=== PATIENT | female | born 1985 | race Caucasian/White ===

== ENCOUNTER 2016-12-04 12:52 | Outpatient (CLI) | payer BC ==
[~2016-12-04] VITALS: Ht 160 cm; Wt 57.3 kg
[2016-12-04 13:00] VITALS: Ht 160 cm; Wt 57.3 kg
[2016-12-04 13:04] VITALS: BP 107/56; PULSE 81; RESP 18
[2016-12-04] MEDS ORDERED: PREN-93 PO (13:07)
--- NOTE | 2016-12-04 14:47 | RADRPT ---
PROCEDURE: US OB. CLINICAL INDICATION: Size and dates TECHNIQUE: Multiple sonographic images of the pelvis and gravid uterus were obtained. The images were reviewed on a PACS workstation. COMPARISON: No prior studies are available for comparison. FINDINGS: There is a single viable intrauterine gestation. Cardiac activity is present with 148 beats per min manas. There is a vertex presentation. The placenta is anterior. There is no evidence for an abruption or placenta previa. Measurements were made in order to determine age. The results are as follows: BPD =8.3 cm HC =30.2 cm AC =29.9 cm FL =5.1 cm Estimated gestational age of approximately 32 weeks and 0 days based on ultrasound measurements. Clinical age: 35 weeks and 6 days. The estimated date of delivery is 01/29/17, based on ultrasound measurements. The EFW = 1854 g, <3%, based on LMP age. RPTAT: AA IMPRESSION: Single viable intrauterine gestation of approximately 32 weeks and 0 days based on ultrasound measu rements. Smaller than clinical age by almost 4 weeks. .Sukhjinder Birmingham MD, MD Date Time Electronically viewed and signed by .Sukhjinder Birmingham MD, on 12/04/2016 14:47 .S/
--- NOTE | 2016-12-04 16:45 | TRIAGE ---
OB Triage Datetime Report Generated by CPN: 12/04/2016 16:45 Datetime: 12/04/2016 15:46 Comments: D/c instruction given to pt. Pt was informed to wait for laborist. Pt verbalized underst aning. Endorse care to Eliana LIMA. This RN to L_D Datetime: 12/04/2016 15:45 Comments: Dr. Loving was informed of u/s results EFW 1854g, gestational age by u/s 332 week. N ew order to sent pt home. Datetime: 12/04/2016 15:36 Labor Evaluation Frequency: 2-10 Monitor Mode: External Duration (sec)2399: 40-60 Quality: Mild Pattern: Normal: <= 5 Contractions in 10 Minutes Resting Tone [place]: Relaxed Heart Rate FHR Baseline Rate: 140 Monitor Mode: External US FHR Baseline Changes: No Baseline Change Variability: Moderate 6-25 bpm Accelerations: 15X15 Decelerations: None Category: Category I Pain Assessment Pain Scale: 4 Pain Presence: Intermittent Pain Type: Cramping Pain Location: Abdomen Pain Goal: 4 Pain Relief Measures: Comfort Measures Datetime: 12/04/2016 14:56 Labor Evaluation Frequency: X3 Monitor Mode: External Duration (sec)2399: 50-70 Quality: Mild Pattern: Normal: <= 5 Contractions in 10 Minutes Resting Tone [place]: Relaxed Heart Rate FHR Baseline Rate: 140 Monitor Mode: External US FHR Baseline Changes: No Baseline Change Variability: Moderate 6-25 bpm Accelerations: 15X15 Decelerations: None Category: Category I Pain Assessment Pain Scale: 0 Pain Presence: None/Denies Pain Type: N/A Pain Goal: 3 Datetime: 12/04/2016 14:16 Comments: U/S IN PROGRESS Datetime: 12/04/2016 14:00 Labor Evaluation Frequency: X2 Monitor Mode: External Duration (sec)2399: 50-70 Quality: Mild Pattern: Normal: <= 5 Contractions in 10 Minutes Resting Tone [place]: Relaxed Heart Rate FHR Baseline Rate: 145 Monitor Mode: External US FHR Baseline Changes: No Baseline Change Variability: Moderate 6-25 bpm Accelerations: 15X15 Decelerations: None Category: Category I Datetime: 12/04/2016 13:32 Labor Evaluation Frequency: X3 Monitor Mode: External Duration (sec)2399: 40-80 Quality: Mild Pattern: Normal: <= 5 Contractions in 10 Minutes Resting Tone [place]: Relaxed Heart Rate FHR Baseline Rate: 130 Monitor Mode: External US FHR Baseline Changes: No Baseline Change Variability: Moderate 6-25 bpm Accelerations: 15X15 Decelerations: None Category: Category I Pain Assessment Pain Scale: 0 Pain Presence: None/Denies Pain Type: N/A Pain Goal: 3 Datetime: 12/04/2016 13:15 Assessment Type: Triage Maternal Assessment Level of Consciousness: Fully Conscious DTR's/Clonus: DTRs 2+; No Clonus Headache: Denies Blurred Vision: No Respiratory Effort: Unlabored; Regular Rhythm; Equal Expansion Breath Sounds, Left: Clear and Equal Breath Sounds, Right: Clear and Equal Nausea/Vomiting: Denies RUQ Epigastric Pain: Denies Lower Extremities Edema: None Upper Extremities Edema: None Facial Edema: None Fall Risk Assessment History of Falling: (0) No Secondary Diagnosis: (0) No Ambulatory Aid: (0) Bedrest/Nurse Assist IV Therapy: (0) No Gait: (0) Normal/Bedrest/Immobile Mental Status: (0) Oriented to Own Ability Fall Score: 0 Fall Risk Score Definition: No Risk: No action required Datetime: 12/04/2016 13:14 EGA: 35.6 Arrived By: Ambulatory Datetime: 12/04/2016 12:58 Time of Arrival: 12/04/2016 12:53 Arrived By: Ambulatory Arrived From: Office Chief Complaint: Pt was sent from clinic for u/s to Estimate date of delivery Movement: Present Contractions: Irregular Rupture of Membranes: Denies Vaginal Bleeding: None Vaginal Discharge: Denies Recent Sexual Intercouse: Denies Abdominal Trauma: Not Applicable Patient Complaints: None Initial Plan: nst, efw
--- NOTE | 2016-12-04 21:19 | CONS ---
Date/Time of Note Date/Time of Note DATE: 12/04/16 TIME: 21:14 Consultation Date/Type/Reason Admit Date/Time December 04, 2016 OB triage consult Reason for Consultation This patient is a 31 years old 3 para 2 both delivered by her estimated date of confinement is January 02, 2017 which makes her 35 weeks and 6 days today She came in complaining of uterine contractions On examination however her ear nose throat appears to be normal she was not in any distress her abdomen was soft heart tone was normal no CVA tenderness her general vital signs were stable Constitutional: improved, no complaints, No chills, No diaphoresis, No disoriented, No febrile, No other, No poor po, No requiring IVF, No requiring O2 Eyes: No discharge, No no complaints, No other, No pain, No redness, No visual change ENT: No bleeding, No congestion, No discharge, No dysphagia, No no complaints, No other, No pain, No sore throat Respiratory: No cough, No no complaints, No other, No pain, No pleuritic pain, No shortness of breath, No sputum, No wheezing Cardiovascular: No chest pain, No edema, No lightheadedness, No no complaints, No orthopenea, No other, No palpitations, No paroxysmal nocturnal dyspnea Gastrointestinal: No blood, No constipation, No decreased appetite, No diarrhea , No flatus, No nausea, No no complaints, No other, No pain, No passing stool, No vomiting Genitourinary: other (Due to lack of contraction pelvic exam was not performed) , No bleeding, No discharge, No dysuria, No flank pain, No hematuria, No no complaints Musculoskeletal: No back pain, No bone/joint pain, No neck pain, No no complaints, No other, No restricted range of motion, No swelling Skin: other, No bruising, No erythema, No laceration, No no complaints, No pruritis, No rash, No skin lesions Neurologic: other (Knee-jerk reflex was normal), No confusion, No dizziness, No focal-weakness, No headache, No no complaints , No seizure, No syncope Endocrine: No dry skin, No no complaints, No other, No polydypsia, No polyuria , No temp intolerance Additional Comments An ultrasound study was performed and the report was a single viable intrauterine gestation with a heartbeat of 148/min in vertex presentation placenta was anterior for age was estimated to be 32 weeks and 0 days as compared to 35 weeks and 6 days clinical estimated delivery was placed at January 29, 2017 Estimated weight was 1854 g 3% based on LMP With these finding patient was discharged home to be followed in Dr. Barrie maldonado office Social History Smoking Status: Never smoker Exam/Review of Systems Vital Signs Vitals Vital Signs Date Time Temp Pulse Resp B/P Pulse Ox O2 Delivery O2 Flow Rate FiO2 12/04/16 13:04 98.3 81 18 107/56 Room Air KENTRELL GUNDERSON MD Dec 04, 2016 21:19
== END 2016-12-04 16:02 | disposition home or self-care (01) ==
LOC: OBT 12:52 → L-D 12:52 → OBT 16:02
PROVIDERS: ATTEND Obstetrics & Gynecology
DX: O62.9 Abnormality of forces of labor, unspecified (principal); Z3A.35 35 weeks gestation of pregnancy
CPT/HCPCS: 76815; Z7500; G0463

== ENCOUNTER 2016-12-13 14:28 | Outpatient (CLI) | payer BC ==
[~2016-12-13] VITALS: Ht 162.6 cm; Wt 58.6 kg
[~2016-12-13 14:28] MED LIST: PREN-93 PO
[2016-12-13 14:38] VITALS: Ht 162.6 cm; Wt 58.6 kg
[2016-12-13 14:39] VITALS: BP 102/61; PULSE 70; RESP 16
[2016-12-13] MEDS ORDERED: HYDROCODONE/APAP (5/325) TAB PO SCH (18:30)
[2016-12-13 19:00] LABS: ADD SCAN DIFF NO; BASOPHILS % 0.4 % (0.0-2.0); EOSINOPHILS # 0.1 10^3/ul (0.0-0.5); EOSINOPHILS % 0.7 % (0.0-7.0); HEMATOCRIT 35.1 % (37.0-47.0); HEMOGLOBIN 11.9 g/dl (12.0-16.0); LYMPHOCYTES # 1.3 10^3/ul (0.8-2.9); LYMPHOCYTES % 18.3 % (15.0-51.0); MEAN CORPUSCULAR HEMOGLOBIN 30.9 pg (29.0-33.0); MEAN CORPUSCULAR HGB CONC 33.9 g/dl (32.0-37.0); MEAN CORPUSCULAR VOLUME 91.2 fl (82.0-101.0); MEAN PLATELET VOLUME 10.3 fl (7.4-10.4); MONOCYTE # 0.6 10^3/ul (0.3-0.9); MONOCYTES % 9.1 % (0.0-11.0); NEUTROPHIL # 4.7 10^3/ul (1.6-7.5); NEUTROPHILS % 67.6 % (39.0-77.0); PLATELET COUNT 223 10^3/UL (140-415); RED BLOOD COUNT 3.85 10^6/ul (4.20-5.40); RED CELL DISTRIBUTION WIDTH 12.3 % (11.5-14.5)
[2016-12-13 19:02] LABS: ADD UMIC NO; UR BILIRUBIN (Dip) NEGATIVE (NEGATIVE); UR BLOOD (Dip) NEGATIVE (NEGATIVE); UR CLARITY CLEAR (CLEAR); UR COLOR LT. YELLOW (YELLOW); UR GLUCOSE (Dip) NEGATIVE (NEGATIVE); UR KETONES (Dip) NEGATIVE (NEGATIVE); UR LEUKOCYTE ESTERASE (Dip) NEGATIVE (NEGATIVE); UR NITRITE (Dip) NEGATIVE (NEGATIVE); UR TOTAL PROTEIN (Dip) NEGATIVE (NEGATIVE); UR UROBILINOGEN (Dip) 0.2 E.U./dL (0.1-1.0)
[2016-12-13] MEDS ORDERED: TERBUTALINE 1 ML ONE (19:06)
[2016-12-13 19:07] LABS: INR 0.92; PARTIAL THROMBOPLASTIN TIME 26.3 Sec (25.0-35.0); PROTIME 12.4 Sec (12.2-14.2)
[2016-12-13 19:18] LABS: ALBUMIN 3.8 g/dl (3.3-4.9); ALBUMIN/GLOBULIN RATIO 1.46; BILIRUBIN,INDIRECT 0.1 mg/dl (0-1.1); BILIRUBIN,TOTAL 0.1 mg/dl (0.2-1.3); CALCIUM 8.9 mg/dl (8.4-10.2); CREATININE 0.53 mg/dl (0.44-1.00); POTASSIUM 3.9 mmol/L (3.5-5.1); TOTAL PROTEIN 6.4 g/dl (6.1-8.1); URIC ACID 2.4 mg/dl (3.1-7.9)
[2016-12-13] MEDS ORDERED: TERBUTALINE 1 MG/ML INJ SC SCH (20:00)
--- NOTE | 2016-12-13 20:47 | PN ---
Triage Information Date/Time Weeks of Gestation 33 wks 2 days : 3 Para: 2 Diabetes: none Hypertention: none Additional information patient c/o headache and swelling; she took motrin at home. [place] in triage improved her headache from 6/10 to 4/10. Denies blurry vision or RUQ pain. No VB, no LOF, patient had some occasional ctx, which resolved after terbutaline. Good FM. Objective Vital Signs Date Time Temp Pulse Resp B/P Pulse Ox O2 Delivery O2 Flow Rate FiO2 12/13/16 14:39 98.0 70 16 102/61 Heart Rate: 140's Contractions: None Results/Medications Result Diagram: 12/13/16 1716 12/13/16 1716 Results 24 hrs Laboratory Tests Test 12/13/16 17:16 White Blood Count 7.0 Red Blood Count 3.85 L Hemoglobin 11.9 L Hematocrit 35.1 L Mean Corpuscular Volume 91.2 Mean Corpuscular Hemoglobin 30.9 Mean Corpuscular Hemoglobin Concent 33.9 Red Cell Distribution Width 12.3 Platelet Count 223 Mean Platelet Volume 10.3 Neutrophils % 67.6 Lymphocytes % 18.3 Monocytes % 9.1 Eosinophils % 0.7 Basophils % 0.4 Nucleated Red Blood Cells % 0.0 Neutrophils # 4.7 Lymphocytes # 1.3 Monocytes # 0.6 Eosinophils # 0.1 Basophils # 0.0 Nucleated Red Blood Cells # 0.0 Prothrombin Time 12.4 Prothrombin Time Ratio 1.0 INR International Normalized Ratio 0.92 Activated Partial Thromboplast Time 26.3 Urine Color LT. YELLOW Urine Clarity CLEAR Urine pH 6.0 Urine Specific [place] 1.010 Urine Ketones NEGATIVE Urine Nitrite NEGATIVE Urine Bilirubin NEGATIVE Urine Urobilinogen 0.2 E.U./dL Urine Leukocyte Esterase NEGATIVE Urine Hemoglobin NEGATIVE Urine Glucose NEGATIVE Urine Total Protein NEGATIVE Sodium Level 135 Potassium Level 3.9 Chloride Level 109 Carbon Dioxide Level 22 Anion Gap 8 Blood Urea Nitrogen 5 L Creatinine 0.53 Glucose Level 69 L Uric Acid 2.4 L Calcium Level 8.9 Total Bilirubin 0.1 L Direct Bilirubin 0.00 Indirect Bilirubin 0.1 Aspartate Amino Transf (AST/SGOT) 19 Alanine Aminotransferase (ALT/SGPT) 23 Alkaline Phosphatase 115 Total Protein 6.4 Albumin 3.8 Globulin 2.60 Albumin/Globulin Ratio 1.46 Medications Current Medications Acetaminophen/ Hydrocodone Bitart ([place] (5/325)) 1 tab ONCE PO ; Start at 18:30; Stop 12/13/16 at 22:22 Terbutaline Sulfate ([place]) 0.25 mg Q20M SC ; Start 12/13/16 at 20:00; Stop 12/13/16 at 20:21 Assessment/Plan 31 yo P2 @ 33.2 wks, w/o prior c/d x 2 - headache now resolving - nml BP, nml PIH labs, no si/sx pre-eclampsia - had some ctx, which resolved - reassuring status Will do sono to r/o previa/accreta, as patient states she had previa on 20 wk sono; if nml placenta, SVE prior to d/c home GUILLERMO GONZALEZ MD Dec 13, 2016 20:23
--- NOTE | 2016-12-13 23:03 | RADRPT ---
PROCEDURE: OB ultrasound for biophysical profile CLINICAL INDICATION: Dizziness. TECHNIQUE: Multiple sonographic images of the gravid uterus performed. The images were reviewed on a PACS workstation. COMPARISON: None FINDINGS: A single live intrauterine is identified with heart rate of 131 bpm. Fet us is in a cephalic presentation. Placenta is located anterior. Biophysical profile: breathing movement = 2/2 tone = 2/2 motion = 2/2 NORMA = 2/2 NORMA = 14.89 cm. IMPRESSION: 1. Single live intrauterine gestation. 2. Biophysical profile = 8/8. 3. NORMA = 14.89 cm. RPTAT: HMVK .Darrin Mccormack MD, MD Date Time Electronically viewed and signed by .Darrin Mccormack MD, MD on 12/13/2016 22:40 .K/
--- NOTE | 2016-12-14 08:01 | TRIAGE ---
OB Triage Datetime Report Generated by CPN: 12/14/2016 08:00 Datetime: 12/13/2016 23:24 Vaginal Exam Dilatation (cms): 0.0 Effacement (%): 0 Station: -3 Exam By: A OSIEL RN Vaginal Bleeding: None Cervix, Consistency: Firm Cervix, Position: Posterior Datetime: 12/13/2016 23:20 Pain Presence: None/Denies Datetime: 12/13/2016 23:00 Stage of : OB Triage Labor Evaluation Frequency: 0 Monitor Mode: External Heart Rate FHR Baseline Rate: 145 Monitor Mode: External US FHR Baseline Changes: No Baseline Change Variability: Moderate 6-25 bpm Accelerations: 15X15 Decelerations: None Category: Category I Datetime: 12/13/2016 21:12 Contraction Comments: PT DISCONNECT SELF FROM MONITOR Comments: PT DISCONNECT SELF FROM MONITOR Datetime: 12/13/2016 21:00 Stage of : OB Triage Labor Evaluation Frequency: IRREGULAR Monitor Mode: External Duration (sec)2399: 20-120 Quality: Mild Pattern: Normal: <= 5 Contractions in 10 Minutes Resting Tone [place]: Relaxed Heart Rate FHR Baseline Rate: 135 Monitor Mode: External US FHR Baseline Changes: No Baseline Change Variability: Moderate 6-25 bpm Accelerations: 15X15 Decelerations: Variable Category: Category I Datetime: 12/13/2016 20:00 Stage of : OB Triage Labor Evaluation Frequency: IRREGULAR Monitor Mode: External Duration (sec)2399: 30 Quality: Mild Pattern: Normal: <= 5 Contractions in 10 Minutes Resting Tone [place]: Relaxed Heart Rate FHR Baseline Rate: 135 Monitor Mode: External US FHR Baseline Changes: No Baseline Change Variability: Moderate 6-25 bpm Accelerations: 15X15 Decelerations: None Category: Category I Datetime: 12/13/2016 19:22 Assessment Type: Triage Maternal Assessment Level of Consciousness: Fully Conscious DTR's/Clonus: DTRs 2+; No Clonus Headache: Frontal Blurred Vision: No Respiratory Effort: Unlabored; Regular Rhythm; Equal Expansion Breath Sounds, Left: Clear and Equal Breath Sounds, Right: Clear and Equal Nausea/Vomiting: Denies RUQ Epigastric Pain: Denies Lower Extremities Edema: None Degree: None Upper Extremities Edema: None Degree: None Facial Edema: None Fall Risk Assessment History of Falling: (0) No Secondary Diagnosis: (0) No Ambulatory Aid: (0) Bedrest/Nurse Assist IV Therapy: (0) No Gait: (0) Normal/Bedrest/Immobile Mental Status: (0) Oriented to Own Ability Fall Score: 0 Fall Risk Score Definition: No Risk: No action required Datetime: 12/13/2016 18:48 Stage of : OB Triage Labor Evaluation Frequency: 3-4 Monitor Mode: External Duration (sec)2399: 40-50 Quality: Mild Pattern: Normal: <= 5 Contractions in 10 Minutes Resting Tone [place]: Relaxed Heart Rate FHR Baseline Rate: 125 Monitor Mode: External US FHR Baseline Changes: No Baseline Change Variability: Moderate 6-25 bpm Accelerations: 15X15 Decelerations: Early Category: Category II Membrane Status: Intact Datetime: 12/13/2016 18:39 Labor Evaluation Frequency: 3-5 Monitor Mode: External Duration (sec)2399: 50-60 Quality: Mild Pattern: Normal: <= 5 Contractions in 10 Minutes Resting Tone [place]: Relaxed Heart Rate FHR Baseline Rate: 125 Monitor Mode: External US FHR Baseline Changes: No Baseline Change Variability: Moderate 6-25 bpm Accelerations: 15X15 Decelerations: None Category: Category I Datetime: 12/13/2016 17:59 Labor Evaluation Frequency: 3-4 Monitor Mode: External Duration (sec)2399: 40-50 Quality: Mild Pattern: Normal: <= 5 Contractions in 10 Minutes Resting Tone [place]: Relaxed Heart Rate FHR Baseline Rate: 125 Monitor Mode: External US FHR Baseline Changes: No Baseline Change Variability: Moderate 6-25 bpm Accelerations: 15X15 Decelerations: None Category: Category I Datetime: 12/13/2016 16:54 Labor Evaluation Frequency: 0 Monitor Mode: External Duration (sec)2399: 0 Resting Tone [place]: Relaxed Heart Rate FHR Baseline Rate: 125 Monitor Mode: External US FHR Baseline Changes: No Baseline Change Variability: Moderate 6-25 bpm Accelerations: 15X15 Decelerations: None Category: Category I Datetime: 12/13/2016 16:08 Labor Evaluation Frequency: 0 Monitor Mode: External Duration (sec)2399: 0 Resting Tone [place]: Relaxed Heart Rate FHR Baseline Rate: 135 Monitor Mode: External US FHR Baseline Changes: No Baseline Change Variability: Moderate 6-25 bpm Accelerations: 15X15 Decelerations: None Category: Category I Datetime: 12/13/2016 15:43 Labor Evaluation Frequency: 0 Monitor Mode: External Duration (sec)2399: 0 Resting Tone [place]: Relaxed Heart Rate FHR Baseline Rate: 135 Monitor Mode: External US FHR Baseline Changes: No Baseline Change Variability: Moderate 6-25 bpm Accelerations: 15X15 Decelerations: Variable Category: Category II Membrane Status: Intact Datetime: 12/13/2016 15:02 Assessment Type: Triage Maternal Assessment Level of Consciousness: Fully Conscious DTR's/Clonus: DTRs 2+; No Clonus Headache: Frontal Blurred Vision: No Respiratory Effort: Unlabored; Regular Rhythm; Equal Expansion Breath Sounds, Left: Clear and Equal Breath Sounds, Right: Clear and Equal Nausea/Vomiting: Denies RUQ Epigastric Pain: Denies Lower Extremities Edema: None Degree: None Upper Extremities Edema: None Degree: None Facial Edema: None Fall Risk Assessment History of Falling: (0) No Secondary Diagnosis: (0) No Ambulatory Aid: (0) Bedrest/Nurse Assist IV Therapy: (0) No Gait: (0) Normal/Bedrest/Immobile Mental Status: (0) Oriented to Own Ability Fall Score: 0 Fall Risk Score Definition: No Risk: No action required Datetime: 12/13/2016 14:54 Stage of : OB Triage Time of Arrival: 12/13/2016 14:20 EGA: 33.2 Arrived By: Ambulance Arrived From: Home Chief Complaint: Pt. came to hospital c/o headche , swelling since yesterday morning 0600, pain le kiran 6/10, deny uc, deny vag. bleeding. deny srom Movement: Present Contractions: Denies/Absent Contractions: 0 Rupture of Membranes: Denies Vaginal Bleeding: None Vaginal Discharge: Denies Recent Sexual Intercouse: Denies Abdominal Trauma: Not Applicable Patient Complaints: Headache Time Provider Notified: 12/13/2016 15:30 Provider Notified: LENOREE Maternal Assessment Level of Consciousness: Fully Conscious DTR's/Clonus: DTRs 2+; No Clonus Headache: Temporal; Frontal Blurred Vision: Yes Respiratory Effort: Unlabored Breath Sounds, Left: Clear and Equal Breath Sounds, Right: Clear and Equal Nausea/Vomiting: Denies RUQ Epigastric Pain: Denies Facial Edema: None Labor Evaluation Frequency: 0 Monitor Mode: External Duration (sec)2399: 0 Resting Tone [place]: Relaxed Heart Rate FHR Baseline Rate: 120 Monitor Mode: External US FHR Baseline Changes: No Baseline Change Variability: Moderate 6-25 bpm Accelerations: 15X15 Decelerations: None Category: Category I Pain Assessment Pain Scale: 7 Pain Presence: Intermittent Pain Type: Ache Pain Location: Other Pain Goal: 0 Pain Relief Measures: Comfort Measures Membrane Status: Intact Datetime: 12/04/2016 13:15 Fall Score: 0 Fall Risk Score Definition: No Risk: No action required Datetime: 12/04/2016 13:14 EGA: 32.0 Datetime: 12/04/2016 12:58 Initial Plan: nst, efw (nst reactive)
== END 2016-12-13 23:30 | disposition home or self-care (01) ==
LOC: L-D 14:28 → OBT 14:28
PROVIDERS: ATTEND Obstetrics & Gynecology
DX: O26.893 Other specified pregnancy related conditions, third trimester (principal); R51 Headache; Z3A.32 32 weeks gestation of pregnancy
CPT/HCPCS: 76818; 80053; 81003; 84560; 85025; 85610; 85730; 86900; 86901; J3105; Z7500; G0463

== ENCOUNTER 2016-12-17 16:39 | Outpatient (CLI) | payer BC ==
[~2016-12-17] VITALS: Ht 162.6 cm; Wt 58.5 kg
[2016-12-17 16:55] VITALS: Ht 162.6 cm; Wt 58.5 kg
[2016-12-17] MEDS ORDERED: FER325 PO (16:55)
[2016-12-17] MEDS ORDERED: CALC600T11 PO (16:55)
[2016-12-17 16:56] VITALS: BP 104/58; PULSE 78; RESP 18
--- NOTE | 2016-12-17 17:44 | RADRPT ---
PROCEDURE: OB ultrasound for biophysical profile CLINICAL INDICATION: Biophysical profile. . TECHNIQUE: Multiple sonographic images of the pelvis were obtained. Transabdominal views are obta ined. COMPARISON: 12/13/2016 FINDINGS: Single intrauterine gestation. Presentation: Cephalic. Placenta: Anterior. No evidence of placental abruption. No evidence of placenta previa. breathing movement = 2/2 tone = 2/2 motion = 2/2 NORMA = 2/2 NORMA = 11.9 cm; previously 14.8 cm heart rate: 161 beats per minute IMPRESSION: Single intrauterine gestation. Biophysical profile 02/03 RPTAT: AADD .Dylon Corado MD, MD Date Time Electronically viewed and signed by .Dylon Corado MD, on 12/17/2016 17:44 .B/
--- NOTE | 2016-12-17 17:48 | RADRPT ---
AMENDMENT: 12/17/2016 8:00:50 PM ABBY PANIAGUA MD Addendum: Current gestational age dating: BPD: 34 weeks 1 day HC: 34 weeks 1 day AC: 34 weeks 0 days FL: 34 weeks 0 days Estimated gestational age: 34 weeks 1 day Estimated date of delivery: 01/27/2017 Gestational age: JIA of current study: 01/27/2017 JIA of first prior study dated (12/13/2016): 01/27/2017 JIA of second prior study dated (12/04/2016): 01/29/2017 Findings are consistent with appropriate interval growth over time. PROCEDURE: Obstetrical ultrasound. CLINICAL INDICATION: , evaluation. Pelvic pain. TECHNIQUE: Transabdominal sonographic images of the pelvis are obtained. COMPARISON: 12/13/2016, 12/04/2016 FINDINGS: Single intrauterine gestation. There is a cephalic presentation. Measurements were made in order to determine age. The results are as follows: BPD = 8.40 cm HC = 30.61 cm AC = 30.08 cm FL = 6.60 cm Heart rate = 152 beats per minute The placenta is anterior. There is no evidence for an abruption or placenta previa. Ovaries are not visualized. IMPRESSION: Single intrauterine gestation of approximately 34 weeks 1 days by ultrasound criteria. [place] estimated weight = 2336 g; 40 percentile for gestational age of 34 weeks 1 days. There are discrepancies of reported gestational age between the current and prior examination based on LMP. Recommend confirmation of gestational age. RPTAT: AADD .Abby Paniagua MD, Date Time Electronically viewed and signed by .Abby Paniagua MD, MD on 12/17/2016 20:01 .B/
--- NOTE | 2016-12-17 21:43 | TRIAGE ---
OB Triage Datetime Report Generated by CPN: 12/17/2016 21:42 Datetime: 12/17/2016 21:05 Stage of : OB Triage Labor Evaluation Frequency: 6/HR Monitor Mode: External Duration (sec)2399: 80-110 Quality: Mild Resting Tone [place]: Relaxed Heart Rate FHR Baseline Rate: 130 Monitor Mode: External US Variability: Moderate 6-25 bpm Accelerations: 15X15 Decelerations: None Category: Category I Pain Assessment Pain Scale: 0 Pain Presence: None/Denies Pain Goal: 3 Vaginal Exam Membrane Status: Intact Datetime: 12/17/2016 20:00 Stage of : OB Triage Labor Evaluation Frequency: IRREG Monitor Mode: External Duration (sec)2399: 90-120 Quality: Mild Resting Tone [place]: Relaxed Heart Rate FHR Baseline Rate: 135 Monitor Mode: External US Variability: Moderate 6-25 bpm Accelerations: 15X15 Decelerations: None Category: Category I Pain Assessment Pain Scale: 0 Pain Presence: None/Denies Pain Goal: 3 Vaginal Exam Membrane Status: Intact Datetime: 12/17/2016 19:00 Stage of : OB Triage Maternal Assessment Level of Consciousness: Fully Conscious Labor Evaluation Frequency: 2UC/HR Monitor Mode: External Duration (sec)2399: 110-120 Quality: Mild Resting Tone [place]: Relaxed Heart Rate FHR Baseline Rate: 135 Monitor Mode: External US Variability: Moderate 6-25 bpm Accelerations: 15X15 Decelerations: None Pain Assessment Pain Scale: 0 Pain Goal: 3 Vaginal Exam Membrane Status: Intact Vaginal Bleeding: None Datetime: 12/17/2016 18:00 Stage of : OB Triage Maternal Assessment Level of Consciousness: Fully Conscious Labor Evaluation Frequency: 1UC/HR Monitor Mode: External Duration (sec)2399: 80 Quality: Mild Resting Tone [place]: Relaxed Heart Rate FHR Baseline Rate: 145 Monitor Mode: External US Variability: Moderate 6-25 bpm Accelerations: 15X15 Decelerations: None Pain Assessment Pain Scale: 0 Pain Goal: 3 Vaginal Exam Membrane Status: Intact Vaginal Bleeding: None Datetime: 12/17/2016 16:53 Assessment Type: Triage Time of Arrival: 12/17/2016 16:35 EGA: 34.1 Arrived By: Ambulatory Arrived From: Dr. Ordoñez Chief Complaint: PT SENT IN FOR EVAL. OF IUGR Movement: Present Contractions: Denies/Absent Rupture of Membranes: Denies Vaginal Bleeding: None Vaginal Discharge: Denies Recent Sexual Intercouse: Denies Abdominal Trauma: Not Applicable Patient Complaints: None Time Provider Notified: 12/17/2016 17:10 Provider Notified: ESHAGHIAN Initial Plan: NST/BPP/EFW Maternal Assessment Level of Consciousness: Fully Conscious DTR's/Clonus: DTRs 2+; No Clonus Headache: Frontal Blurred Vision: No Respiratory Effort: Unlabored; Regular Rhythm; Equal Expansion Breath Sounds, Left: Clear and Equal Breath Sounds, Right: Clear and Equal Nausea/Vomiting: Denies RUQ Epigastric Pain: Denies Lower Extremities Edema: None Degree: None Upper Extremities Edema: None Degree: None Facial Edema: None Fall Risk Assessment History of Falling: (0) No Secondary Diagnosis: (0) No Ambulatory Aid: (0) Bedrest/Nurse Assist IV Therapy: (0) No Gait: (0) Normal/Bedrest/Immobile Mental Status: (0) Oriented to Own Ability Fall Score: 0 Fall Risk Score Definition: No Risk: No action required Datetime: 12/17/2016 16:49 Monitor Mode: External Monitor Mode: External US Datetime: 12/13/2016 19:22 Fall Score: 0 Fall Risk Score Definition: No Risk: No action required Datetime: 12/13/2016 15:02 Fall Score: 0 Fall Risk Score Definition: No Risk: No action required Datetime: 12/13/2016 14:54 EGA: 33.4 Datetime: 12/04/2016 13:15 Fall Score: 0 Fall Risk Score Definition: No Risk: No action required Datetime: 12/04/2016 13:14 EGA: 32.2
--- NOTE | 2016-12-17 22:40 | PN ---
Triage Information Date/Time Weeks of Gestation Patient is 3 para 2 at 34+1 weeks of gestation She has had minimal care and recently has moved here from [place] She reports positive movement She was sent from her clinic to be evaluated for possible IUGR : 3 Para: 2 Diabetes: none Hypertention: none Additional information Recently moved here from [place] with minimal care Objective Vital Signs Date Time Temp Pulse Resp B/P Pulse Ox O2 Delivery O2 Flow Rate FiO2 12/17/16 16:56 98.5 78 18 104/58 97 Room Air Heart Rate: 140's Heart Rate Comments Reactive Contractions: None Results/Medications Imaging Results PROCEDURE: OB ultrasound for biophysical profile CLINICAL INDICATION: Biophysical profile. . TECHNIQUE: Multiple sonographic images of the pelvis were obtained. Transabdominal views are obtained. COMPARISON: 12/13/2016 FINDINGS: Single intrauterine gestation. Presentation: Cephalic. Placenta: Anterior. No evidence of placental abruption. No evidence of placenta previa. breathing movement = 2/2 tone = 2/2 motion = 2/2 NORMA = 2/2 NORMA = 11.9 cm; previously 14.8 cm heart rate: 161 beats per minute IMPRESSION: Single intrauterine gestation. Biophysical profile 02/03 RPTAT: AADD .Dylon Corado MD, MD Date Time Electronically viewed and signed by .Dylon Corado MD, on 12/17/2016 17:44 .B/ CC: FRANCIA BROWN MD AMENDMENT: 12/17/2016 8:00:50 PM ABBY HOPKINS MD Addendum: Current gestational age dating: BPD: 34 weeks 1 day HC: 34 weeks 1 day AC: 34 weeks 0 days FL: 34 weeks 0 days Estimated gestational age: 34 weeks 1 day Estimated date of delivery: 01/27/2017 Gestational age: JIA of current study: 01/27/2017 JIA of first prior study dated (12/13/2016): 01/27/2017 JIA of second prior study dated (12/04/2016): 01/29/2017 Findings are consistent with appropriate interval growth over time. PROCEDURE: Obstetrical ultrasound. CLINICAL INDICATION: , evaluation. Pelvic pain. TECHNIQUE: Transabdominal sonographic images of the pelvis are obtained. COMPARISON: 12/13/2016, 12/04/2016 FINDINGS: Single intrauterine gestation. There is a cephalic presentation. Measurements were made in order to determine age. The results are as follows: BPD = 8.40 cm HC = 30.61 cm AC = 30.08 cm FL = 6.60 cm Heart rate = 152 beats per minute The placenta is anterior. There is no evidence for an abruption or placenta previa. Ovaries are not visualized. IMPRESSION: Single intrauterine gestation of approximately 34 weeks 1 days by ultrasound criteria. [place] estimated weight = 2336 g; 40 percentile for gestational age of 34 weeks 1 days. There are discrepancies of reported gestational age between the current and prior examination based on LMP. Recommend confirmation of gestational age. RPTAT: AADD .Abby Hopkins MD, MD Date Time Electronically viewed and signed by .Abby Hopkins MD, MD on 12/17/2016 20:01 .B/ CC: FRANCIA BROWN MD Assessment/Plan Patient is a 34 weeks of gestation with estimated date of delivery January 27, 2017 Estimated weight of 2336 g at 40th percentile Biophysical profile within normal limits Patient will be discharged home Patient instructed to follow-up with the clinic in 2-3 days MARIAH MCMAHAN MD Dec 17, 2016 22:40
== END 2016-12-17 21:30 | disposition home or self-care (01) ==
LOC: OBT 16:39 → L-D 16:40 → OBT 21:30
PROVIDERS: ATTEND Obstetrics & Gynecology
DX: O26.893 Other specified pregnancy related conditions, third trimester (principal); R10.2 Pelvic and perineal pain; Z3A.34 34 weeks gestation of pregnancy
CPT/HCPCS: 76815; 76818; G0463

== ENCOUNTER 2017-01-01 07:43 | Inpatient (IN) | payer BC ==
[~2017-01-01] VITALS: Ht 162.6 cm; Wt 58.8 kg
[2017-01-01] VITALS (7 sets, daily range): BP systolic 123–156; BP diastolic 70–85; PULSE 48–100; RESP 16–20; Ht 162.6 cm; Wt 58.8 kg
[~2017-01-01 07:43] MED LIST changes: +CALC600T11 PO; +FER325 PO
--- NOTE | 2017-01-01 08:42 | RADRPT ---
PROCEDURE: US OB. CLINICAL INDICATION: labor at 34 weeks gestational age. TECHNIQUE: Multiple sonographic images of the uterus were obtained. The images were revi ewed on a PACS workstation. COMPARISON: No prior studies are available for comparison. FINDINGS: There is a single live intrauterine gestation. heart rate is 1243 beats per minute. Measurements were made in order to determine age. The results are as follows: BPD = not visualized due to low position. HC = not visualized due to low position. AC = 31.11 cm. FL = 6.39 cm. Estimated weight is 2449 +/- 392 grams. LMP growth percentile is 12 %. Menstrual age by ultrasound dates is 34 weeks 0 days. The estimated date of delivery is 02/12/2017. Position is cephalic and placenta is anterior grade II. There is no evidence for an abruption or silvia centa previa. IMPRESSION: 1. Single live intrauterine gestation of 34 weeks 0 days menstrual age by ultrasound dates. 2. The estimated date of delivery is 02/12/2017. 3. head is not well seen and unable to be measured due to very low position. RPTAT: QQ .Samuel Lee MD, MD Date Time Electronically viewed and signed by .Samuel Lee MD, on 01/01/2017 08:42 .R/
--- NOTE | 2017-01-01 08:45 | RADRPT ---
PROCEDURE: OB ultrasound for biophysical profile CLINICAL INDICATION: Biophysical profile. . TECHNIQUE: Multiple sonographic images of the pelvis were obtained. Transabdominal views are obta ined. COMPARISON: 01/01/2017 FINDINGS: Single intrauterine gestation. Presentation: Cephalic. Placenta: Anterior. No evidence of placental abruption. No evidence of placenta previa. breathing movement = 2/2 tone = 2/2 motion = 2/2 NORMA = 2/2 NORMA = 12.2 cm; previously 11.9 cm heart rate: 146 beats per minute IMPRESSION: Single intrauterine gestation. Biophysical profile 02/03 RPTAT: AADD .Dylon Corado MD, MD Date Time Electronically viewed and signed by .Dylon Corado MD, on 01/01/2017 08:45 .B/
[2017-01-01] MEDS: LACTATED RINGER'S 1,000 ML IV SCH ×5 (08:52→23:42)
[2017-01-01 08:59] LABS: ADD SCAN DIFF NO
[2017-01-01 09:17] LABS: INR 0.81; PROTIME 11.2 Sec (12.2-14.2); PT RATIO 0.9
[2017-01-01 09:18] LABS: PARTIAL THROMBOPLASTIN TIME 23.6 Sec (25.0-35.0)
[2017-01-01] MEDS ORDERED: METHYLERGONOVINE 0.2 MG INJ IM PRN ×2 (09:30→14:00)
[2017-01-01] MEDS ORDERED: BETAMET NA PHOS/AC(6 MG/ML) 5ML INJ IM ONE (09:30)
[2017-01-01] MEDS ORDERED: CEFAZOLIN 2 GM/50 ML (PMX) 50 ML IV SCH (09:30)
[2017-01-01] MEDS ORDERED: OXYTOCIN 30 UNITS/LR 500 ML IV SCH (09:30)
[2017-01-01] MEDS ORDERED: MISOPROSTOL 200 MCG TAB PR PRN ×2 (09:30→14:00)
[2017-01-01] MEDS ORDERED: CARBOPROST 250 MCG INJ IM PRN ×2 (09:30→14:00)
[2017-01-01] MEDS ORDERED: OXYTOCIN 30 UNITS/LR 500 ML IV PRN ×2 (09:30→14:00)
[2017-01-01 09:45] LABS: HEMOGLOBIN 13.1 g/dl (12.0-16.0); RED BLOOD COUNT 4.19 10^6/ul (4.20-5.40); WHITE BLOOD COUNT 8.2 10^3/ul (4.8-10.8)
[2017-01-01 09:46] LABS: BASOPHILS % 0.5 % (0.0-2.0); EOSINOPHILS % 1.1 % (0.0-7.0); HEMATOCRIT 37.7 % (37.0-47.0); LYMPHOCYTES % 30.3 % (15.0-51.0); MEAN CORPUSCULAR HEMOGLOBIN 31.3 pg (29.0-33.0); MEAN CORPUSCULAR HGB CONC 34.7 g/dl (32.0-37.0); MEAN PLATELET VOLUME 10.9 fl (7.4-10.4); MONOCYTES % 9.4 % (0.0-11.0); NEUTROPHILS % 55.6 % (39.0-77.0); PLATELET COUNT 203 10^3/UL (140-440); RED CELL DISTRIBUTION WIDTH 12.6 % (11.5-14.5)
[2017-01-01 09:47] LABS: EOSINOPHILS # 0.1 10^3/ul (0.0-0.5); LYMPHOCYTES # 2.5 10^3/ul (0.8-2.9); MONOCYTE # 0.8 10^3/ul (0.3-0.9); NEUTROPHIL # 4.6 10^3/ul (1.6-7.5)
--- NOTE | 2017-01-01 09:47 | CONS ---
Date/Time of Note Date/Time of Note DATE: 01/01/17 TIME: 09:37 Consultation Date/Type/Reason Admit Date/Time Jan 01, 2017 at 09:32 OB triage consult Reason for Consultation This patient is a 31 years old 3 para 2 who had her previous deliveries by section. Her estimated date of confinement is January 27, 2017 which makes her 36 weeks and 2 days. She came in complaining of contractions since 6: 00 in the morning On examination she is a well-developed well-nourished lady near term. her general vital signs are normal, blood pressure 135/85 ,pulse rate 100, respiration 20, temperature 97, She does have contractions every 5-6 minutes. heart tone is normal with fairly good variability and occasional acceleration . On pelvic examination cervix is 1 finger 90% effaced -2 station with intact membranes. Laboratory Tests Test 01/01/17 08:25 Prothrombin Time 11.2Sec Prothrombin Time Ratio 0.9 INR International Normalized Ratio 0.81 Activated Partial Thromboplast Time 23.6Sec Current Medications Medications (Trade) Dose Ordered Sig/Nancy Route PRN Reason Start Time Stop Time Status Last Admin Dose Admin Lactated Ringer's 1,000 ml @ 125 mls/hr Q8H IV 01/01/17 08:30 01/01/17 09:05 125 MLS/HR Cefazolin Sodium/ Dextrose 50 ml @ 100 mls/hr ONCE IV 01/01/17 09:30 Oxytocin/Lactated Ringer's 500 ml @ 125 mls/hr ONCE IV 01/01/17 09:30 Oxytocin/Lactated Ringer's 500 ml @ 0 mls/hr ONCE PRN IV For Hemorrhage Management 01/01/17 09:30 Methylergonovine Maleate (Methergine) 0.2 mg ONCE PRN IM VAGINAL BLEEDING 01/01/17 09:30 Carboprost Tromethamine (Hemabate) 250 mcg ONCE PRN IM VAGINAL BLEEDING 01/01/17 09:30 Misoprostol (Cytotec) 1,000 mcg ONCE PRN NC VAGINAL BLEEDING 01/01/17 09:30 Betamethasone Acet/Betameth SodPhos (Celestone Soluspan) 12 mg ONCE ONCE IM 01/01/17 09:30 01/01/17 09:34 DC Constitutional: No chills, No diaphoresis, No disoriented, No febrile, No improved, No no complaints, No other, No poor po, No requiring IVF, No requiring O2 Eyes: No discharge, No no complaints, No other, No pain, No redness, No visual change ENT: No bleeding, No congestion, No discharge, No dysphagia, No no complaints, No other, No pain, No sore throat Respiratory: No cough, No no complaints, No other, No pain, No pleuritic pain, No shortness of breath, No sputum, No wheezing Cardiovascular: No chest pain, No edema, No lightheadedness, No no complaints, No orthopenea, No other, No palpitations, No paroxysmal nocturnal dyspnea Gastrointestinal: No blood, No constipation, No decreased appetite, No diarrhea , No flatus, No nausea, No no complaints, No other, No pain, No passing stool, No vomiting Genitourinary: other (Cervix was as I mentioned 1 cm dilated 90% effaced and - 2 station with intact membranes), No bleeding, No discharge, No dysuria, No flank pain, No hematuria, No no complaints Musculoskeletal: No back pain, No bone/joint pain, No neck pain, No no complaints, No other, No restricted range of motion, No swelling Skin: No bruising, No erythema, No laceration, No no complaints, No other, No pruritis, No rash, No skin lesions Neurologic: No confusion, No dizziness, No focal-weakness, No headache, No no complaints, No other, No seizure, No syncope Endocrine: No dry skin, No no complaints, No other, No polydypsia, No polyuria , No temp intolerance Additional Comments We have done an ultrasound study: the report is a single live intrauterine gestation, heart rate 124 bpm .estimated weight of 2449 g 392 g. menstrual age by ultrasound was determined at 34 weeks, estimated date of delivery 02/12/2017. however clinically she is 36 weeks 1 day. the biophysical profile was 02/03 NORMA was 12.2 cm At this point we discussed the findings with the patient and Dr. Davidson her attending physician .He would like to do a repeat section for her soon. she will be admitted in the hospital for this procedure End of dictation thank you Social History Smoking Status: Never smoker Exam/Review of Systems Vital Signs Vitals Vital Signs Date Time Temp Pulse Resp B/P Pulse Ox O2 Delivery O2 Flow Rate FiO2 01/01/17 07:53 97.0 100 20 135/85 Room Air Results Results 24 hrs Laboratory Tests Test 01/01/17 08:25 Prothrombin Time 11.2 L Prothrombin Time Ratio 0.9 INR International Normalized Ratio 0.81 Activated Partial Thromboplast Time 23.6 L Medications Medications Current Medications Lactated Ringer's 1,000 ml @ 125 mls/hr Q8H IV Last administered on 01/01/17t 09:05; Admin Dose 125 MLS/HR; Start 01/01/17 at 08:30 Cefazolin Sodium/ Dextrose 50 ml @ 100 mls/hr ONCE IV ; Start 01/01/17 at 09:30 Oxytocin/Lactated Ringer's 500 ml @ 125 mls/hr ONCE IV ; Start 01/01/17 at 09:30 Oxytocin/Lactated Ringer's 500 ml @ 0 mls/hr ONCE PRN IV For Hemorrhage Management; Start 01/01/17 at 09:30 Methylergonovine Maleate (Methergine) 0.2 mg ONCE PRN IM VAGINAL BLEEDING; Start 01/01/17 at 09:30 Carboprost Tromethamine (Hemabate) 250 mcg ONCE PRN IM VAGINAL BLEEDING; Start 01/01/17 at 09:30 Misoprostol (Cytotec) 1,000 mcg ONCE PRN NC VAGINAL BLEEDING; Start 01/01/17 at 09:30 KENTRELL GUNDERSON MD Jan 01, 2017 09:47
[2017-01-01 09:57] LABS: UR BACTERIA MANY /HPF (NONE SEEN); UR RBC 2 /HPF (0-5)
[2017-01-01 09:59] LABS: ADD UMIC YES; UR ASCORBIC ACID NEGATIVE (NEGATIVE); UR BILIRUBIN (Dip) NEGATIVE (NEGATIVE); UR BLOOD (Dip) NEGATIVE (NEGATIVE); UR CLARITY SLIGHTLY CLOUDY (CLEAR); UR COLOR YELLOW (YELLOW); UR GLUCOSE (Dip) NEGATIVE (NEGATIVE); UR KETONES (Dip) NEGATIVE (NEGATIVE); UR LEUKOCYTE ESTERASE (Dip) TRACE Leu/ul (NEGATIVE); UR NITRITE (Dip) NEGATIVE (NEGATIVE); UR SPECIFIC GRAVITY (Dip) 1.009 (1.003-1.030); UR TOTAL PROTEIN (Dip) NEGATIVE (NEGATIVE); UR UROBILINOGEN (Dip) NEGATIVE (NEGATIVE)
[2017-01-01 10:05] LABS: UR SQUAMOUS EPITHELIAL CELL FEW /HPF (FEW)
[2017-01-01 10:06] LABS: BARBITURATES Negative (NEGATIVE); CANNABINOIDS Negative (NEGATIVE); COCAINE Negative (NEGATIVE); OPIATES Negative (NEGATIVE)
[2017-01-01 10:44] LABS: BENZODIAZEPINES Negative (NEGATIVE)
[2017-01-01] MEDS ORDERED: morphine SULFATE/PF (10 MG/10 ML) INJ ONE (12:24)
[2017-01-01] MEDS ORDERED: FENTAnyl 50 MCG/ML VIAL ONE (12:24)
[2017-01-01] MEDS ORDERED: PHENYLephrine (100 MCG/ML) 5ML SYG ONE (12:24)
--- NOTE | 2017-01-01 12:34 | HP ---
Date/Time of Note Date/Time of Note DATE: 01/01/17 TIME: 12:27 Assessment/Plan VTE Prophylaxis VTE Prophylaxis Intervention: SCD's Lines/Catheters IV Catheter Type (from Nrsg): Peripheral IV Assessment/Plan Assessment/Plan iup at 36 wks ga, in PTL previous CD X 2 Desire elective Repeat CD with BTL r/b/a explained HPI/ROS Admit Date/Time Admit Date/Time Jan 01, 2017 at 09:32 OB triage consult Hx of Present Illness 31 yo iup at 36 wks ga, positive ctx since this morning no vaginal bleeding or [facility] ROS Constitutional: no complaints Eyes: No discharge, No no complaints, No other, No pain, No redness, No visual change ENT: No bleeding, No congestion, No discharge, No dysphagia, No no complaints, No other, No pain, No sore throat Respiratory: No cough, No no complaints, No other, No pain, No pleuritic pain, No shortness of breath, No sputum, No wheezing Cardiovascular: No chest pain, No edema, No lightheadedness, No no complaints, No orthopenea, No other, No palpitations, No paroxysmal nocturnal dyspnea Gastrointestinal: No blood, No constipation, No decreased appetite, No diarrhea , No flatus, No nausea, No no complaints, No other, No pain, No passing stool, No vomiting Genitourinary: other (Cervix was as I mentioned 1 cm dilated 90% effaced and - 2 station with intact membranes), No bleeding, No discharge, No dysuria, No flank pain, No hematuria, No no complaints Musculoskeletal: No back pain, No bone/joint pain, No neck pain, No no complaints, No other, No restricted range of motion, No swelling Skin: No bruising, No erythema, No laceration, No no complaints, No other, No pruritis, No rash, No skin lesions Neurologic: No confusion, No dizziness, No focal-weakness, No headache, No no complaints, No other, No seizure, No syncope PMH/Family/Social Past Medical History Medical History: no pertinent history Past Surgical History 2 CD Family History Significant Family History: no pertinent family hx Social History Alcohol Use: none Smoking Status: Never smoker Drug Use: none Exam/Review of Systems Vital Signs Vitals Vital Signs Date Time Temp Pulse Resp B/P Pulse Ox O2 Delivery O2 Flow Rate FiO2 01/01/17 07:53 97.0 100 20 135/85 Room Air Exam Constitutional: alert Psych: no complaints Head: normocephalic Eyes: EOMI, PERRL, nl conjunctiva, nl lids, nl sclera ENMT: nl external ears & nose, nl lips & teeth, nl nasal mucosa & septum Neck: non-tender, supple Respiratory: clear to auscultation, normal air movement Cardiovascular: nl pulses, regular rate and rhythm Gastrointestinal: nl liver, spleen, non-tender, soft Musculoskeletal: nl extremities to inspection Extremities: normal pulses Neurological: TRAFFIC ANALYSIS TECHNICIAN II-XII intact, nl mental status, nl speech, nl strength Skin: nl turgor, No rash or lesions Lymph: nl lymph nodes Labs Result Diagram: 01/01/17 0825 Medications Medications Current Medications Lactated Ringer's 1,000 ml @ 125 mls/hr Q8H IV Last administered on 01/01/17t 11:59; Admin Dose 125 MLS/HR; Start 01/01/17 at 08:30 Cefazolin Sodium/ Dextrose 50 ml @ 100 mls/hr ONCE IV ; Start 01/01/17 at 09:30 Oxytocin/Lactated Ringer's 500 ml @ 125 mls/hr ONCE IV ; Start 01/01/17 at 09:30 Oxytocin/Lactated Ringer's 500 ml @ 0 mls/hr ONCE PRN IV For Hemorrhage Management; Start 01/01/17 at 09:30 Methylergonovine Maleate (Methergine) 0.2 mg ONCE PRN IM VAGINAL BLEEDING; Start 01/01/17 at 09:30 Carboprost Tromethamine (Hemabate) 250 mcg ONCE PRN IM VAGINAL BLEEDING; Start 01/01/17 at 09:30 Misoprostol (Cytotec) 1,000 mcg ONCE PRN NM VAGINAL BLEEDING; Start 01/01/17 at 09:30 FRANCIA BROWN MD Jan 01, 2017 12:33
[2017-01-01] MEDS ORDERED: ONDANSETRON 4 MG INJ ONE (12:37)
[2017-01-01] MEDS ORDERED: DEXAMETHASONE 4 MG/ML 1 ML INJ ONE (12:37)
[2017-01-01] MEDS ORDERED: OXYTOCIN 30 UNITS/LR 500 ML IV ONE (12:56)
[2017-01-01] MEDS ORDERED: TRIAMCINOLONE ACET 40 MG/ML INJ INJ STA (13:03)
[2017-01-01] MEDS ORDERED: MIDAZOLAM 1 MG/ML 2 ML INJ ONE (13:07)
[2017-01-01] MEDS ORDERED: DIPHENHYDRAMINE 50 MG INJ IV PRN (13:30)
[2017-01-01] MEDS ORDERED: ONDANSETRON 4 MG INJ IV PRN (13:30)
[2017-01-01] MEDS ORDERED: ZOLPIDEM 5 MG TAB PO PRN (13:30)
[2017-01-01] MEDS ORDERED: PROCHLORPERAZINE 10 MG INJ IV PRN (13:30)
[2017-01-01] MEDS ORDERED: NALOXONE (0.4 MG/ML) INJ IV PRN (13:30)
[2017-01-01] MEDS ORDERED: HYDROmorphONE 1 MG/ML SYG IV PRN ×2 (13:30)
[2017-01-01] MEDS ORDERED: KETOROLAC 30 MG INJ IV PRN (13:30)
[2017-01-01] MEDS ORDERED: OXYCODONE/ACETAMINOPHEN (5/325) TAB PO PRN (14:00)
[2017-01-01] MEDS ORDERED: LANOLIN 7 GM TUBE TOP PRN (14:00)
--- NOTE | 2017-01-01 18:09 | OPR ---
Operative Report Planned Procedure Free Text/Dictation DATE OF OPERATION: 01/01/2017 PREOPERATIVE DIAGNOSIS: Intrauterine at 36 weeks gestational age, labor, previous delivery x2, multiparous, desires elective repeat delivery with bilateral tubal sterilization. POSTOPERATIVE DIAGNOSIS: Same. OPERATION PERFORMED: Repeat low transverse delivery with bilateral tubal ligation, modified Erika method SURGEON: Darrin Brown MD. CYLINDER MACHINE OPERATOR: Dr. Mcgrath ANESTHESIA: Spinal. COMPLICATIONS OF PROCEDURE: None. ESTIMATED BLOOD LOSS: 500 mL. FINDINGS: A viable male, 9 and 9 respectively at 1 and 5 minutes. Weight 6lbs 7 oz . Pathology: portion of right and left fallopian tube. DESCRIPTION OF PROCEDURE: After explaining the risks, benefits and alternatives , the patient and consent signed in chart, the patient was taken to the operating room where spinal anesthesia was found to be adequate. She was then prepared and draped in normal sterile fashion in dorsal supine position with a leftward tilt. A Pfannenstiel skin incision was then made with a scalpel and carried to the underlying layer of fascia. The fascia was incised in the midline and incision was extended laterally with Garcia scissors. The superior aspect of the fascial incision was grasped with curved clamps, elevated and the underlying rectus muscles dissected off bluntly. Attention was then turned to the inferior aspect of the incision, which in similar fashion was grasped, tented up with curved clamps and the rectus muscles dissected off bluntly. The rectus muscles were then in midline, peritoneum identified, tented up with Metzenbaum scissors. The peritoneal incision was extended superiorly, inferiorly with good visualization of bladder. . At this point, the bladder blade was then inserted and the vesicouterine peritoneum identified, grasped with pickups and entered sharply with Metzenbaum scissors. This incision was extended laterally and the bladder flap created digitally. The bladder blade was then reinserted and was incised in transverse fashion with a scalpel. The uterine incision was extended laterally. The bladder blade was removed and the infant's head delivered atraumatically. The nose and mouth were suctioned and cord clamped and cut. The infant was handed off to awaiting car sales representative. The placenta was then removed. The uterus was exteriorized and cleared of all clots and debris. The uterine incision was repaired with 1-0 chromic in a running locked fashion. A second layer of same suture was used for imbrication obtaining excellent hemostasis. At this point, a Nayeli clamp was used to grasp the left tube approximately 4 cm from the cornual region. A 3 cm segment of tube was ligated with a free tie of plain gut and excised. Good hemostasis was noted. Similarly, the right fallopian tube was excised. The uterus was returned to the abdomen. The gutters were cleared of all clots. Good hemostasis was assured from the tubal ligation site. The peritoneum was reapproximated with 2-0 plain gut in interrupted fashion. The fascia was reapproximated with 0 Vicryl in a running fashion. The subcutaneous tissue was reapproximated with 2-0 plain gut in a running fashion. The skin was closed with shasha. The patient tolerated procedure well. Sponge, lap and needle counts correct x2. The patient was taken to recovery room in stable condition. Procedure date Jan 01, 2017 Procedure Description Under satisfactory [] anesthesia, the patient was prepped and draped and placed in a supine position, tilted to the left. Pfannenstiel incision was made, carried through the subcutaneous tissue. Bleeders brought under control with electrocautery. Fascia incised to the length of the incision. Rectus muscles from the fascia, divided midline. Peritoneum exposed, entered through a transverse incision. Exploration of abdomen revealed gravid uterus. Bladder flap was developed. Transverse incision was made in the lower segment of the uterus. Amniotic sac ruptured. [] amniotic fluid noted. [] Nasal oropharyngeal suction was performed. The baby was handed to the team for immediate attention. The placenta was delivered manually intact. Uterine cavity was cleaned with wet sponge and drainage established. Uterus closed in 2 layers using [] in continuous fashion. Peritoneal cavity irrigated with warm saline. Sponge, needle and instrument count reported to be correct. Abdominal peritoneum closed with [] continuously. Rectus muscle approximated with []. Fascia closed with [], and skin closed with shasha. Estimated blood loss []mL. Urine bag contained []mL of urine Post-Procedure Findings: Live Baby [], Apgars [] and [], weight [], position [], [] presentation []cord. Physician Certification I, the undersigned physician, hereby certify that I have discussed the procedure described in this consent form with this patient (or the patient's legal bottling equipment sales representative), including: * The risk and benefits of the procedure; * Any adverse reactions that may reasonably be expected to occur; * Any alternative efficacious methods of treatment which may be medically viable ; * The potential problems that may occur during recuperation; * Potential for blood transfusion and associated risks/benefits; and * Any research or economic interest I may have regarding this treatment. I further certify that the patient/legally responsible person was encouraged to ask question and that all questions were answered. DARRIN BROWN MD Jan 01, 2017 18:09
[2017-01-01] MEDS: SENNA/DOCUSATE NA (8.6MG/50MG) TAB PO SCH (20:32)
[2017-01-01 22:24] LABS: ADD SCAN DIFF NO
[2017-01-01 22:25] LABS: BASOPHILS % 0.2 % (0.0-2.0); HEMATOCRIT 38.9 % (37.0-47.0); HEMOGLOBIN 13.6 g/dl (12.0-16.0); LYMPHOCYTES # 0.9 10^3/ul (0.8-2.9); LYMPHOCYTES % 5.4 % (15.0-51.0); MEAN CORPUSCULAR HEMOGLOBIN 31.1 pg (29.0-33.0); MEAN PLATELET VOLUME 10.1 fl (7.4-10.4); MONOCYTE # 0.4 10^3/ul (0.3-0.9); MONOCYTES % 2.3 % (0.0-11.0); NEUTROPHIL # 15.8 10^3/ul (1.6-7.5); NEUTROPHILS % 91.2 % (39.0-77.0); PLATELET COUNT 182 10^3/UL (140-415); RED BLOOD COUNT 4.37 10^6/ul (4.20-5.40); RED CELL DISTRIBUTION WIDTH 12.3 % (11.5-14.5); WHITE BLOOD COUNT 17.3 10^3/ul (4.8-10.8)
[2017-01-01 22:29] LABS: ADD UMIC YES; UR ASCORBIC ACID NEGATIVE (NEGATIVE); UR BILIRUBIN (Dip) NEGATIVE (NEGATIVE); UR BLOOD (Dip) 1+ mg/dL (NEGATIVE); UR CLARITY CLEAR (CLEAR); UR COLOR YELLOW (YELLOW); UR GLUCOSE (Dip) NEGATIVE (NEGATIVE); UR KETONES (Dip) TRACE mg/dL (NEGATIVE); UR LEUKOCYTE ESTERASE (Dip) NEGATIVE Leu/ul (NEGATIVE); UR NITRITE (Dip) NEGATIVE (NEGATIVE); UR RBC 11 /HPF (0-5); UR SPECIFIC GRAVITY (Dip) 1.013 (1.003-1.030); UR TOTAL PROTEIN (Dip) NEGATIVE (NEGATIVE); UR UROBILINOGEN (Dip) NEGATIVE (NEGATIVE)
[2017-01-01 22:39] LABS: INR 0.93; PROTIME 12.5 Sec (12.2-14.2)
[2017-01-01 22:40] LABS: PARTIAL THROMBOPLASTIN TIME 26.2 Sec (25.0-35.0)
[2017-01-01 22:44] LABS: ALBUMIN 3.9 g/dl (3.3-4.9); ALBUMIN/GLOBULIN RATIO 1.3; BILIRUBIN,INDIRECT 0.4 mg/dl (0-1.1); BILIRUBIN,TOTAL 0.4 mg/dl (0.2-1.3); CALCIUM 9.7 mg/dl (8.4-10.2); CREATININE 0.46 mg/dl (0.44-1.00); POTASSIUM 4.1 mmol/L (3.5-5.1); TOTAL PROTEIN 6.9 g/dl (6.1-8.1); URIC ACID 2.2 mg/dl (3.1-7.9)
[2017-01-01 23:08] LABS: FIBRIN SPLIT PRODUCT >10 and <40 ug/ml (<10)
[2017-01-02 04:00] VITALS: BP 105/62; PULSE 52; RESP 18
--- NOTE | 2017-01-02 06:21 | QN ---
Documentation Comment patient seen and evaluated no complaints positive munguia clear ab soft nt no distention dressing clean extremity no edema no calf tenderness a/ sp repeat cd with btl pod 1 stable p/ f/u am labs FRANCIA BROWN MD Jan 02, 2017 06:21
[2017-01-02 07:50] VITALS: BP 91/50; PULSE 71; RESP 19
[2017-01-02] MEDS: LACTATED RINGER'S 1,000 ML IV SCH ×3 (08:20→21:39)
[2017-01-02 08:44] LABS: ADD SCAN DIFF NO
[2017-01-02 08:48] LABS: BASOPHILS % 0.1 % (0.0-2.0); HEMATOCRIT 33.7 % (37.0-47.0); HEMOGLOBIN 11.5 g/dl (12.0-16.0); LYMPHOCYTES # 1.1 10^3/ul (0.8-2.9); LYMPHOCYTES % 6.7 % (15.0-51.0); MEAN CORPUSCULAR HEMOGLOBIN 30.7 pg (29.0-33.0); MEAN CORPUSCULAR HGB CONC 34.1 g/dl (32.0-37.0); MEAN CORPUSCULAR VOLUME 90.1 fl (82.0-101.0); MEAN PLATELET VOLUME 10.5 fl (7.4-10.4); MONOCYTES % 5.9 % (0.0-11.0); NEUTROPHIL # 14.1 10^3/ul (1.6-7.5); NEUTROPHILS % 86.3 % (39.0-77.0); PLATELET COUNT 174 10^3/UL (140-415); RED BLOOD COUNT 3.74 10^6/ul (4.20-5.40); RED CELL DISTRIBUTION WIDTH 12.7 % (11.5-14.5); WHITE BLOOD COUNT 16.4 10^3/ul (4.8-10.8)
[2017-01-02] MEDS: SENNA/DOCUSATE NA (8.6MG/50MG) TAB PO SCH ×2 (09:45→20:38)
[2017-01-02 12:00] VITALS: BP 99/60; PULSE 60; RESP 20
[2017-01-02] MEDS: OXYCODONE/ACETAMINOPHEN (5/325) TAB PO PRN ×2 (13:24→19:59)
[2017-01-02 16:00] VITALS: BP 99/61; PULSE 57; RESP 19
[2017-01-02] MEDS ORDERED: IBUPROFEN 600 MG TAB PO SCH (18:00)
[2017-01-02 20:00] VITALS: BP 100/52; PULSE 58; RESP 18
[2017-01-03 04:00] VITALS: BP 107/55; PULSE 54; RESP 18
[2017-01-03] MEDS: LACTATED RINGER'S 1,000 ML IV SCH (05:39)
[2017-01-03] MEDS: OXYCODONE/ACETAMINOPHEN (5/325) TAB PO PRN ×2 (06:11→06:12)
[2017-01-03 08:00] VITALS: BP 106/66; PULSE 57; RESP 16
[2017-01-03] MEDS: SENNA/DOCUSATE NA (8.6MG/50MG) TAB PO SCH ×2 (08:37→21:28)
--- NOTE | 2017-01-03 10:36 | QN ---
Documentation Comment POD#2 is stable afebrile tolerates diet No VB +Flatus+voids VS stable Gen NAD Abd soft NT ND incision intact Genitalai No blood at perinium --->ambulation PEDRO CASTELLANOS M.D. Jan 03, 2017 10:35
[2017-01-03] MEDS: IBUPROFEN 600 MG TAB GTB SCH ×2 (14:16→18:15)
[2017-01-03 15:45] VITALS: BP 108/69; PULSE 65; RESP 16
[2017-01-03 19:50] VITALS: BP 100/62; PULSE 55; RESP 20
[2017-01-04] MEDS: IBUPROFEN 600 MG TAB GTB SCH ×3 (00:21→11:43)
[2017-01-04 04:20] VITALS: BP 119/60; PULSE 55; RESP 20
[2017-01-04 07:50] VITALS: BP 114/72; PULSE 50; RESP 16
[2017-01-04] MEDS: SENNA/DOCUSATE NA (8.6MG/50MG) TAB PO SCH (08:43)
--- NOTE | 2017-01-04 12:38 | PD.PPDC ---
RAIL ENGINEER Discharge Instruction Condition Patient Condition: Good Diet Diet: Resume Regular Diet Activity/Restrictions Activity: Bedrest May be up to bathroom May be up for meals May Shower Restrictions: No Exercising No Lifting No Driving Minimize Walking Minimize Stair-climbing No Sexual Activity Nothing in the Vagina No [place] No Tampons, douche Wound/Drain Care Instructions Wound/Drain Care Instructions: Remove Steri Strips in 2 weeks Keep clean and dry Follow-up Follow-up with Physician: 2, Week/Weeks Return to clinic for COAT JOINER Instructions: Fever greater than 101 Chills Worsening abdominal pain Excessive Vaginal Bleeding OB Instructions: Breast Tenderness Depression Surgical Instructions: Incisional Drainage Incisional Redness ZHANG TAVAREZ MD Jan 04, 2017 12:37
[2017-01-04] MEDS ORDERED: Oxycodone/Acetamin (5/325) PO (12:39)
--- NOTE | 2017-01-04 12:43 | DS ---
Date/Time of Note Date/Time of Note DATE: 01/04/17 TIME: 12:39 Obstetrical Discharge Record Final Diagnosis Final Diagnosis: delivered Other Final Diagnosis labor; previous x 2. Section Section: Repeat Complications Labor Augmentation: No Induction: No Condition on Discharge Physical Assessment Last Vitals: BP 114/72 T=98 Voiding: Yes Bowel Movement: Yes Breast: Filling Fundus: Firm Abdomen and Incision: Incision clean, dry and intact. [place] removed and replaced with steristrips with Benzoin. Pt has minimal body fat so incision is well applied. Calf Tenderness: No Patient Condition: Good ZHANG TAVAREZ MD Jan 04, 2017 12:43
== END 2017-01-04 14:55 | disposition home or self-care (01) | DRG 765 ==
LOC: OBT 07:43 → L-D 07:44 → OBT 09:24 → L-D 09:32 → PP1 16:31
PROVIDERS: ADMIT Obstetrics & Gynecology; ATTEND Obstetrics & Gynecology
PROC: 10D00Z1 Extraction of Products of Conception, Low, Open Approach (ICD-10-PCS; principal; 2017-01-01 11:30)
DX: O34.211 Maternal care for low transverse scar from previous cesarean delivery (principal); O60.14X0 Preterm labor third trimester with preterm delivery third trimester, not applicable or unspecified; Z3A.36 36 weeks gestation of pregnancy; Z37.0 Single live birth
CPT/HCPCS: 36415; 62319; 76815; 76818; 80053; 80307; 81001; 84560; 85025; 85362; 85384; 85610; 85730; 86592; 86850; 86900; 86901; 87340; 88302; 99464; G0463; J0690; J0702; J1100; J2250; J2274; J2370; J2405; J2590; J3010; J7120